=== PATIENT | male | born 1990 | race Caucasian/White ===

== ENCOUNTER 2020-07-17 22:55 | Emergency (ER) | payer BC, OTHER ==
[2020-07-17] MEDS ORDERED: Lidocaine 1% 10 ML MDV INJECT ONE (23:35)
[2020-07-17] MEDS ORDERED: Diphtheria,Pertussis(Acell),Tetanus Vaccine 0.5 ML Syringe IM ONE (23:35)
--- NOTE | 2020-07-17 23:37 | EDM.PDOC ---
ED HPI GENERAL MEDICAL PROBLEM - General Chief Complaint: Laceration Stated Complaint: CUT RIGHT HAND Time Seen by Provider: 07/17/20 23:20 Source of Information: Reports: Patient History Limitations: Reports: No Limitations - History of Present Illness INITIAL COMMENTS - FREE TEXT/NARRATIVE: 30-year-old male presents to the ED with a laceration to the ulnar aspect of his right hand. It is almost in the midline over the fifth metatarsal. He has good sensation to the tip of his left fifth finger. Laceration is approximately 2.5 cm in length and is very dirty as he was working on a motor vehicle when the laceration occurred. He reports he cut it on the sharp spindle of the hub of the wheel. He is unclear when his last tetanus toxoid was updated. Onset: Today, Sudden Onset Date: 07/17/20 Onset Time: 22:35 Duration: Minutes: Location: Reports: Upper Extremity, Right (Serration to the ulnar aspect of his right hand over the mid fifth) Quality: Reports: Ache ( metacarpal) Severity: Mild Improves with: Reports: None Worsens with: Reports: None Context: Reports: Trauma (Slipped against a metal spindle of a motor vehicle he was working on. Sharp steel edge.). Denies: Activity, Exercise, Lifting, Sick Contact Associated Symptoms: Reports: No Other Symptoms Treatments PATIENT SUPPORT ASSOCIATE: Reports: Other (see below) (None.) Right Hand Pain Score (Numeric/FACES): 3 - Related Data Allergies Allergy/AdvReac Type Severity Reaction Status Date / Time amoxicillin Allergy Severe Rash Verified 07/17/20 23:20 Home Meds: Home Meds . [No Known Home Meds] 12/21/17 [History] Past Medical History - Past Health History Medical/Surgical History: Denies Medical/Surgical History - Infectious Disease History Infectious Disease History: Reports: Chicken Pox - Past Surgical History HEENT Surgical History: Reports: Adenoidectomy GI Surgical History: Reports: Appendectomy Social & Family History - Family History Family Medical History: Noncontributory - Tobacco Use Smoking Status *Q: Current Every Day Smoker Years of Tobacco use: 15 Packs/Tins Daily: 0.5 - Caffeine Use Caffeine Use: Reports: Coffee - Recreational Drug Use Recreational Drug Use: No - Living Situation & Occupation Living situation: Reports: Occupation: Employed ED ROS GENERAL - Review of Systems Review Of Systems: See Below Constitutional: Denies: Fever, Chills, Malaise, Weakness, Fatigue HEENT: Reports: No Symptoms Respiratory: Reports: No Symptoms Cardiovascular: Reports: No Symptoms Endocrine: Reports: No Symptoms GI/Abdominal: Reports: No Symptoms : Reports: No Symptoms Musculoskeletal: Reports: No Symptoms Skin: Reports: Other Neurological: Reports: No Symptoms (Laceration ulnar aspect right hand) Psychiatric: Reports: No Symptoms Hematologic/Lymphatic: Reports: No Symptoms ED EXAM, SKIN/RASH Exam: See Below Exam Limited By: No Limitations General Appearance: Alert, WD/WN, No Apparent Distress Extremities: Other (Examination of his right hand reveals a 2.5 cm laceration which is fairly linear along the mid ulnar aspect of his hand over the fifth metatarsal. Wound is minimally bleeding. It is subcutaneous. He has normal sensation to the tip of his right fifth finger and full movement with no evidence of neurovascular injury.) Neurological: Alert, Oriented, CN II-XII Intact, Normal Cognition Psychiatric: Normal Affect, Normal Mood Skin: Warm, Normal Color, No Rash, Other (Laceration right ulnar hand.) Course - Vital Signs Last Recorded V/S: Last Vital Signs Temp 37.4 C 07/17/20 23:24 Pulse 87 07/17/20 23:24 Resp 20 07/17/20 23:24 BP 136/79 07/17/20 23:24 Pulse Ox 99 07/17/20 23:24 - Orders/Labs/Meds Orders: Active Orders 24 hr Category Date Time Status Vaccines to be Administered [RC] PER UNIT ROUTINE Care 07/17/20 23:35 Active Meds: Medications Discontinued Medications Generic Name Dose Route Start Last Admin Trade Name Reza PRN Reason Stop Dose Admin Diphtheria/Tetanus/Acell Pertussis 0.5 ml 07/17/20 23:35 07/17/20 23:55 Adacel IM 07/17/20 23:36 0.5 ml .ONCE ONE Administration Lidocaine HCl 10 ml 07/17/20 23:35 07/17/20 23:55 Xylocaine 1% INJECT 07/17/20 23:36 10 ml ONETIME ONE Administration - Radiology Interpretation Free Text/Narrative:: 30-year-old male presents to the ED with a 2.5 cm laceration to the ulnar aspect of his right hand over the fifth metatarsal. He slipped while working on his motor vehicle changing a bearing on the axle. Laceration by a piece of steel. Wound will be cleansed and then will require suture repair. Since he does not know when his last tetanus diphtheria pertussis vaccine was updated he will be updated today. - Re-Assessments/Exams Free Text/Narrative Re-Assessment/Exam: 07/18/20 00:10 laceration right ulnar hand has been sutured x6 under local anesthetic. Patient will daily cleanse the wound with soap and water and apply topical antibiotic such as bacitracin or Polysporin. Cover with a bandage to keep clean. Sutures will need to be removed in 10 days time. He will return to medical care if any signs of infection occur such as redness, swelling or obvious pus. Departure - Departure Time of Disposition: 00:25 Disposition: Home, Self-Care 01 Condition: Fair Clinical Impression: Laceration of hand Qualifiers: Encounter type: initial encounter Foreign body presence: without foreign body Laterality: right Qualified Code(s): S61.411A - Laceration without foreign body of right hand, initial encounter - Discharge Information *PRESCRIPTION DRUG MONITORING PROGRAM REVIEWED*: Not Applicable *COPY OF PRESCRIPTION DRUG MONITORING REPORT IN PATIENT KRYSTYNA: Not Applicable Instructions: Sutured Wound Care Referrals: PCP,None [Primary Care Provider] - Forms: ED Department Discharge Additional Instructions: Evaluation in the emergency room tonight in regards to a 2.5 cm laceration to the ulnar aspect of your right hand. This occurred from a sharp metal object at home. Wound was cleansed and then sutured under local anesthetic with the use of lidocaine 1%. 6 sutures were placed in all. Treatment at home is to daily cleanse the wound with soap and water. Showering is okay. Wound should not be soaked under water however until the sutures are removed. Placed topical antibiotic such as bacitracin or Polysporin on the wound and cover with a bandage to keep clean. Return to medical care if any signs of infection occur such as redness, swelling or obvious pus. Sutures will need to be removed in 10 days time. Motrin 600 mg every 6 hours if needed for pain relief. Sepsis Event Note (ED) - Evaluation Sepsis Screening Result: No Definite Risk - Focused Exam Vital Signs: Vital Signs Temp Pulse Resp BP Pulse Ox 07/17/20 23:24 37.4 C 87 20 136/79 99 - My Orders Last 24 Hours: My Active Orders 07/17/20 23:35 Vaccines to be Administered [RC] PER UNIT ROUTINE - Assessment/Plan Last 24 Hours: My Active Orders 07/17/20 23:35 Vaccines to be Administered [RC] PER UNIT ROUTINE
== END 2020-07-18 00:33 | disposition home or self-care (01) ==
LOC: JD.ED 22:55
DX: S61.411A Laceration without foreign body of right hand, initial encounter (principal); Z88.1 Allergy status to other antibiotic agents; Z23 Encounter for immunization; F17.210 Nicotine dependence, cigarettes, uncomplicated; W26.8XXA Contact with other sharp object(s), not elsewhere classified, initial encounter
CPT/HCPCS: 12001; 90471; 90715; 99282; J2001